=== PATIENT | female | born 1970 | race Caucasian/White ===

== ENCOUNTER → 2020-12-06 | Outpatient (REF) | payer MEDICARE, MEDICAID ==
[~2020-12-06] MED LIST: ABIL2TAB; ABIL5TAB OR; ABIL5TAB PO; ACET500C OR; AMIT25TA10 PO; AMOX875T OR; ASPI81TA4 PO; ASPI81TA85 PO; BENZ1TAB PO; CALCCHW12 OR; CLON1TAB; DARV100T; DARV100T OR; DYAZ37.5 PO; FEMA2.5T4 PO; GABA600T3 OR; GLUCOSAMIN OR; HALO1TAB20 OR; HYDR50TA8 PO; IMIT6INJ IJ; KLON0.5T; KLON0.5T OR; KLON1TAB; LAMI1TAB7 OR; LODINE; LODINE OR; LODINE PO; MAXA10TA17 OR; NITR0.6S SL; OXYC10TA12 OR; PREV15CA PO; RANI1TAB17 PO; RISP3TAB16 PO; RISP4TAB; ROBA500T; RYZOLT OR; STOOL SOFTENER PO; TERB250T OR; TIZA4TAB; TIZA4TAB OR; TOPA25TA PO; TOPI100T OR; TOPI100T PO; TRAZ100T PO; TRAZ50TA PO; TYLENOL #3 OR; VICO5TAB PO; VOLT1GEL2 TD; [UNRECOGNIZED DRUG - OTHER]; [UNRECOGNIZED DRUG - OTHER]; [UNRECOGNIZED DRUG - OTHER]; [UNRECOGNIZED DRUG - OTHER] OR; [UNRECOGNIZED DRUG - OTHER] OR; [UNRECOGNIZED DRUG - OTHER] OR; [UNRECOGNIZED DRUG - OTHER] PO; emla cream TD
[2020-12-06 18:20] LABS: FREE T4 1.21 NG/DL (0.76-1.46); THYROID STIMULATING HORMONE 4.04 uIU/ML (0.358-3.740)
== END ==
LOC: M LAB REF 16:55
PROVIDERS: ATTEND Internal Medicine Nephrology
DX: N04.9 Nephrotic syndrome with unspecified morphologic changes (principal); E07.9 Disorder of thyroid, unspecified

== ENCOUNTER → 2020-12-14 | Outpatient (REF) ==
[2020-12-14 16:32] LABS: INFLUENZA A AMPLIFICATION NEGATIVE (NEGATIVE); INFLUENZA B AMPLIFICATION NEGATIVE (NEGATIVE)
== END ==
LOC: M LAB 09:14